=== PATIENT | female | born 1990 | race Caucasian/White ===

== ENCOUNTER 2018-01-29 06:35 | Inpatient (IN) | payer OTHER ==
[2018-01-29 07:49] LABS: BASO % 0.3 % (0-2.0); EOS % 0.5 % (0-4.5); HEMATOCRIT 32.5 % (32.4-45.2); HEMOGLOBIN 10.7 GM/dL (10.7-15.3); LYMPH % 17.7 % (8-40); MCH 25.5 pg (25.7-33.7); MCHC 32.8 g/dl (32.0-36.0); MEAN CELL VOLUME 77.6 fl (80-96); MEAN PLT VOLUME 9.3 fl (7.5-11.1); NEUT % 76.5 % (42.8-82.8); PLATELET COUNT 175 K/MM3 (134-434); RBC 4.18 M/mm3 (3.60-5.2); RDW 15.5 % (11.6-15.6); WHITE BLOOD COUNT 12.4 K/mm3 (4.0-10.0)
[2018-01-29] MEDS ORDERED: BUTORPHANOL TARTRATE 1 MG/ML VIAL ONE ×2 (08:05)
[2018-01-29] MEDS ORDERED: PROMETHAZINE HCL 25 MG/1 ML VIAL ONE (08:05)
[2018-01-29 08:11] LABS: ANION GAP 9 (8-16); BLOOD UREA NITROGEN 6 mg/dL (7-18); CHLORIDE 105 mmol/L (98-107); CO2 22 mmol/L (21-32); CREATININE 0.6 mg/dL (0.55-1.02); GLUCOSE,RANDOM 92 mg/dL (74-106); POTASSIUM 3.7 mmol/L (3.5-5.1); SODIUM 136 mmol/L (136-145)
[2018-01-29 08:15] LABS: INR 1.01 (0.82-1.09); PROTHROMBIN TIME (PATIENT) 11.4 SEC (9.7-13.0)
[2018-01-29 08:29] VITALS: BMI 38.4
--- NOTE | 2018-01-29 09:21 | HP ---
Past Medical History - Admission Chief Complaint: Labor pain History of Present Illness: 27 yo , @ 39 weeks gestation, EDC 02/03/18, admitted for labor pain. Upon admission she was 4cm dilated. History Source: Patient Limitations to Obtaining History: No Limitations - Past Medical History ...: 1 ...Para: 0 ...Term: 0 ...: 0 ...Spon : 0 ...Induced : 0 ...Multiple Gestation: 0 ...LMP: 04/29/17 ... Weeks Gestation by Dates: 39.2 ...EDC by Dates: 02/03/18 ...EDC by Sono: 02/03/18 - Past Surgical History Past Surgical History: Yes: None Hx Myomectomy: No Hx Transabdominal Cerclage: No - Smoking History Smoking history: Former smoker Have you smoked in the past 12 months: No Aproximately how many cigarettes per day: 10 - Alcohol/Substance Use Hx Alcohol Use: No History of Substance Use: reports: None - Social History History of Recent Travel: No Home Medications - Allergies Allergies/Adverse Reactions: Allergies Allergy/AdvReac Type Severity Reaction Status Date / Time No Known Allergies Allergy Verified 01/29/18 07:25 - Home Medications Home Medications: Ambulatory Orders Vit No.130/Iron/Folic [ Vitamins] 1 each PO DAILY 01/29/18 Family Disease History - Family Disease History Family History: Unremarkable Review of Systems - Review of Systems Constitutional: reports: No Symptoms Eyes: reports: No Symptoms HENT: reports: No Symptoms Neck: reports: No Symptoms Cardiovascular: reports: No Symptoms Respiratory: reports: No Symptoms Gastrointestinal: reports: No Symptoms Genitourinary: reports: Pain Breasts: reports: No Symptoms Reported Musculoskeletal: reports: No Symptoms Integumentary: reports: No Symptoms Neurological: reports: No Symptoms Endocrine: reports: No Symptoms Hematology/Lymphatic: reports: No Symptoms Psychiatric: reports: No Symptoms Pain Intensity: 7 Physical Exam - Maternity Vital Signs: Vital Signs Temperature 97.9 F 01/29/18 08:15 Pulse Rate 62 01/29/18 09:00 Respiratory Rate 01/29/18 09:00 Blood Pressure 99/51 01/29/18 09:00 O2 Sat by Pulse Oximetry (%) Constitutional: Yes: Well Nourished Eyes: Yes: Conjunctiva Clear HENT: Yes: Atraumatic Neck: Yes: Supple Cardiovascular: Yes: Regular Rate and Rhythm Lungs: Clear to auscultation - Abdominal Exam/OB Number of Fetuses: Single Presentation: Vertex Contractions: Yes - Vaginal Exam/OB Dilatation (cm): 4 Presentation: Vertex/Position - Physical Exam ...Motor Strength: WNL Psychiatric: Yes: Alert, Oriented - Labs Lab Results: CBC, BMP 01/29/18 07:35 01/29/18 07:35 Problem List - Problems (1) Pain during labor Code(s): O99.89 - OTH DISEASES AND CONDITIONS COMPL PREG/CHLDBRTH; R52 - PAIN, UNSPECIFIED Assessment/Plan Active labor Admit to L&D Analgesia as needed Anticipate
[2018-01-29] MEDS ORDERED: PROMETHAZINE HCL 25 MG/1 ML VIAL IVPB ONE (09:30)
[2018-01-29] MEDS ORDERED: BUTORPHANOL TARTRATE 1 MG/ML VIAL IVPUSH ONE (09:30)
[2018-01-29] MEDS ORDERED: OXYTOCIN 30 UNITS in 0.9% NS 30 UNIT/500 ML INFUS.BAG IVPB SCH (09:30)
[2018-01-29] MEDS ORDERED: OXYTOCIN 30 UNITS in 0.9% NS 30 UNIT/500 ML INFUS.BAG IVPB ONE (09:31)
[2018-01-29] MEDS ORDERED: DEXTROSE 5%-LACTATED RINGERS 1,000 ML IV SCH (09:45)
[2018-01-29] MEDS ORDERED: LIDO 2%/EPI 1:200000 PRESRVFRE (20 ML SDVIAL) ONE (10:59)
[2018-01-29] MEDS ORDERED: BUPIVACAINE HCL/PF 0.25% (2.5MG/ML) 10 ML VIAL ONE (10:59)
[2018-01-29] MEDS ORDERED: NALOXONE HCL 0.4 MG/ML VIAL IVPUSH PRN (11:20)
[2018-01-29] MEDS ORDERED: FENTANYL/BUPIVACAINE/NS/PF - PCEA - 50 ML DISP.SYRIN EP SCH (11:30)
[2018-01-29] MEDS ORDERED: LIDOCAINE HCL 1% PRESERVATIVE FREE - 30ML VIAL ONE (11:57)
[2018-01-29] MEDS ORDERED: OXYTOCIN 20 UNITS in 0.9% NS 20 UNIT/1,000 ML INFUS.BAG IV ONE ×2 (11:58→15:31)
[2018-01-29] MEDS ORDERED: IBUPROFEN 600 MG TABLET (FP) PO PRN (13:16)
[2018-01-29] MEDS ORDERED: ACETAMINOPHEN 325 MG TABLET (FP) PO PRN (13:16)
[2018-01-29] MEDS ORDERED: BENZOCAINE 28 GM HEMORRHOIDAL OINTMENT TP PRN (13:16)
[2018-01-29] MEDS ORDERED: BENZOCAINE 20% 57 GM BOTTLE TP PRN (13:16)
[2018-01-29] MEDS ORDERED: WITCH HAZEL 50% (TUCKS) 40 PAD/JAR PAD TP PRN (13:16)
[2018-01-29] MEDS ORDERED: BISACODYL 10 MG SUPP.RECT RC PRN (13:16)
[2018-01-29] MEDS ORDERED: METHYLERGONOVINE MALEATE 0.2 MG/1 ML AMP IM PRN (13:16)
[2018-01-29] MEDS ORDERED: FENTANYL/BUPIVACAINE/NS/PF - PCEA - 50 ML DISP.SYRIN EP ONE (14:20)
--- NOTE | 2018-01-29 15:41 | PN ---
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 Nose / Oropharynx suctioned @ perineum. Cord clamped and cut. Placenta expelled spontaneously intact. Laceration repaired with 2.0 Biosyn and 2.0 Chromic.
[2018-01-29] MEDS ORDERED: OXYTOCIN 20 UNITS in 0.9% NS 20 UNIT/1,000 ML INFUS.BAG IV SCH (16:00)
[2018-01-29] MEDS: FERROUS SO4 325 MG TABLET (FP) PO SCH (18:43)
[2018-01-30 07:33] LABS: BASO % 0.3 % (0-2.0); EOS % 1.3 % (0-4.5); HEMATOCRIT 30.4 % (32.4-45.2); LYMPH % 24.5 % (8-40); MCH 25.5 pg (25.7-33.7); MCHC 32.8 g/dl (32.0-36.0); MEAN CELL VOLUME 77.7 fl (80-96); MEAN PLT VOLUME 9.8 fl (7.5-11.1); MONO % 6.6 % (3.8-10.2); NEUT % 67.3 % (42.8-82.8); PLATELET COUNT 173 K/MM3 (134-434); RBC 3.91 M/mm3 (3.60-5.2); RDW 15.3 % (11.6-15.6); WHITE BLOOD COUNT 13.9 K/mm3 (4.0-10.0)
[2018-01-30] MEDS: FERROUS SO4 325 MG TABLET (FP) PO SCH ×3 (08:00→17:06)
[2018-01-30] MEDS: PRENATAL VITAMINS W/ FOLIC ACID TABLET (FP) PO SCH (09:20)
--- NOTE | 2018-01-30 10:43 | PN ---
Post Progress Note - Subjective Subjective: 27 yo Para 1 status post vaginal delivery, seen and evaluated. Doing well Post Day: 1 Type of Delivery: Vital Signs: Vital Signs Temperature 99.0 F 01/30/18 08:25 Pulse Rate 84 01/30/18 08:25 Respiratory Rate 18 01/30/18 08:25 Blood Pressure 123/74 01/30/18 08:25 O2 Sat by Pulse Oximetry (%) 100 01/29/18 15:53 Breast Exam: Yes: Soft Uterus: Yes: Fundus Firm Abdomen/GI: Yes: Abdomen soft, Tolerating PO Lochia: Yes: Rubra Lochia, amount: Moderate Extremities: Yes: Calves non-tender Perineum: Yes: Laceration (Healing) Activity: Ambulating - Labs Labs: CBC WBC 13.9 K/mm3 (4.0-10.0) H 01/30/18 06:20 RBC 3.91 M/mm3 (3.60-5.2) 01/30/18 06:20 Hgb 10.0 GM/dL (10.7-15.3) L 01/30/18 06:20 Hct 30.4 % (32.4-45.2) L 01/30/18 06:20 MCV 77.7 fl (80-96) L 01/30/18 06:20 MCH 25.5 pg (25.7-33.7) L 01/30/18 06:20 MCHC 32.8 g/dl (32.0-36.0) 01/30/18 06:20 RDW 15.3 % (11.6-15.6) 01/30/18 06:20 Plt Count 173 K/MM3 (134-434) 01/30/18 06:20 MPV 9.8 fl (7.5-11.1) 01/30/18 06:20 Neutrophils % 67.3 % (42.8-82.8) 01/30/18 06:20 Lymphocytes % 24.5 % (8-40) D 01/30/18 06:20 Monocytes % 6.6 % (3.8-10.2) 01/30/18 06:20 Eosinophils % 1.3 % (0-4.5) D 01/30/18 06:20 Basophils % 0.3 % (0-2.0) 01/30/18 06:20 Nucleated RBC % 0 % (0-0) 01/30/18 06:20 Problem List - Problems (1) Pain during labor Code(s): O99.89 - OTH DISEASES AND CONDITIONS COMPL PREG/CHLDBRTH; R52 - PAIN, UNSPECIFIED (2) Status post normal vaginal delivery Code(s): VPK0754 - Assessment/Plan Status post vaginal delivery Stable Continue routine care
[2018-01-30] MEDS ORDERED: SENNOSIDES/DOCUSATE COMBO (SENNA PLUS) TABLET (UD) PO PRN (22:00)
[2018-01-31] MEDS: FERROUS SO4 325 MG TABLET (FP) PO SCH ×2 (09:00→11:59)
[2018-01-31] MEDS: PRENATAL VITAMINS W/ FOLIC ACID TABLET (FP) PO SCH (09:53)
[2018-01-31 11:12] VITALS: BP 110/62; PULSE 88; TEMP 98.5
--- NOTE | 2018-01-31 12:56 | DS ---
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 Vital Signs: Vital Signs Temperature 98.5 F 01/31/18 10:00 Pulse Rate 88 01/31/18 10:00 Respiratory Rate 20 01/31/18 10:00 Blood Pressure 110/62 01/31/18 10:00 O2 Sat by Pulse Oximetry (%) 100 01/29/18 15:53 Constitutional: Yes: Well Nourished Eyes: Yes: Conjunctiva Clear HENT: Yes: Atraumatic Neck: Yes: Supple Cardiovascular: Yes: Regular Rate and Rhythm Respiratory: Yes: Regular Gastrointestinal: Yes: Normal Bowel Sounds External Genitalia: Yes: Normal Vaginal Exam: Yes: Normal Cervix: Yes: Normal Uterus: Yes: Firm ....Post : Yes: Uterus firm, Moderate lochia serosa Breast(s): Yes: WNL Musculoskeletal: Yes: WNL Neurological: Yes: Alert, Oriented ...Motor Strength: WNL Psychiatric: Yes: Alert, Oriented Labs: CBC, BMP 01/30/18 06:20 01/29/18 07:35 Delivery - Delivery Vaginal Delivery: Spontaneous Type of Anesthesia: Epidural Episiotomy/Laceration: 1st degree EBL (cc): 300 Delivery, Single - Stages of Labor Date 1st Stage Initiatied: 01/29/18 Time 1st Stage Initiated: 05:30 Date 2nd Stage Initiated: 01/29/18 Time 2nd Stage Initiated: 12:20 Date of Delivery: 01/29/18 Time of Delivery: 12:50 Time Placenta Delivered: 12:55 - Condition of 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 Present: No Gender: Male Weight: 7 lb 14 oz Position: Left, OA Total Hours ROM (Hrs/Mins): 2hrs/45mins - 1 Minute Total Score: 9 5 Minutes Total Score: 9 - Feeding Plan Initial Plan: Elected not to breastfeed exclusively throughout hospitalization Discharge Summary Reason For Visit: LABOR ADMIT Current Active Problems Pain during labor (Acute) Status post normal vaginal delivery (Acute) Procedures: Principal: Normal spontaneous vaginal delivery Hospital Course: Routine care Condition: Good - Instructions Diet, Activity, Other Instructions: Regular diet No douching, no sexual intercourse x 6 weeks F/U in clinic in 6 weeks Disposition: HOME - Home Medications Comprehensive Discharge Medication List: Ambulatory Orders Vit No.130/Iron/Folic [ Vitamins] 1 each PO DAILY 01/29/18
== END 2018-01-31 15:20 | disposition home or self-care (01) | DRG 775 ==
LOC: JDEL 06:35 → JLDR 07:15 → J3W 16:00
PROVIDERS: ADMIT Obstetrics & Gynecology; ATTEND Obstetrics & Gynecology
PROC: 10E0XZZ Delivery of Products of Conception, External Approach (ICD-10-PCS; principal; 2018-01-29)
PROC: 0W8NXZZ Division of Female Perineum, External Approach (ICD-10-PCS; 2018-01-29)
PROC: 0HQ9XZZ Repair Perineum Skin, External Approach (ICD-10-PCS; 2018-01-29)
DX: O70.0 First degree perineal laceration during delivery (principal); Z3A.39 39 weeks gestation of pregnancy; Z37.0 Single live birth
CPT/HCPCS: 36415; 59025; 59409; 80048; 85025; 85610; 85730; 86593; 86850; 86900; 86901

== ENCOUNTER 2018-09-18 10:21 | Emergency (ER) | payer OTHER ==
[2018-09-18 10:31] VITALS: BP 122/89; PULSE 82; TEMP 99; BMI 37.3
--- NOTE | 2018-09-18 11:27 | PDOC ---
History of Present Illness - General Chief Complaint: Vaginal Bleeding Stated Complaint: 12 WEEKS VAGINAL BLEEDING Time Seen by Provider: 09/18/18 11:09 History Source: Patient Exam Limitations: No Limitations - History of Present Illness Initial Comments: 09/18/18 11:22 28 yo F currently 12 weeks by LMP 06/22/18 here with c/0 vaginal bleeding. started 4 days ago. described as light spotting. using liner. was feeling lightheade few days ago. no abd pain no cramping. her ob is Past History - Past Medical History Allergies/Adverse Reactions: Allergies Allergy/AdvReac Type Severity Reaction Status Date / Time No Known Allergies Allergy Verified 09/18/18 10:28 Home Medications: Ambulatory Orders Vit No.130/Iron/Folic [ Vitamins] 1 each PO DAILY 01/29/18 Asthma: No Cancer: No Cardiac Disorders: No COPD: No Diabetes: No HTN: No Seizures: No Thyroid Disease: No - Immunization History Immunization Up to Date: Yes - Suicide/Smoking/Psychosocial Hx Smoking Status: Yes Smoking History: Never smoked Have you smoked in the past 12 months: No Number of Cigarettes Smoked Daily: 10 Hx Alcohol Use: No Drug/Substance Use Hx: No Hx Substance Use Treatment: No Review of Systems - Review of Systems Constitutional: No: Chills, Diaphoresis, Fever HEENTM: No: Eye Pain, Blurred Vision Respiratory: No: Cough, Orthopnea Cardiac (ROS): No: Chest Pain, Edema ABD/GI: No: Abdominal Distended : Yes: Other (vaginal bleeding.). No: Burning, Dysuria Hematologic/Lymphatic: No: Anemia, Blood Clots All Other Systems: Reviewed and Negative *Physical Exam - Vital Signs Last Vital Signs Temp Pulse Resp BP Pulse Ox 99.0 F 82 18 122/89 100 09/18/18 10:28 09/18/18 10:28 09/18/18 10:28 09/18/18 10:28 09/18/18 10:28 - Physical Exam Comments: 09/18/18 11:27 awake alert lungs clear bilaterally heart rrr no mrg abd soft nt nd. ext wwp no edema. no calf tenderness. Moderate Sedation - Procedure Monitoring Vital Signs: Procedure Monitoring Vital Signs Temperature 99.0 F 09/18/18 10:28 Pulse Rate 82 09/18/18 10:28 Respiratory Rate 18 09/18/18 10:28 Blood Pressure 122/89 09/18/18 10:28 O2 Sat by Pulse Oximetry (%) 100 09/18/18 10:28 ED Treatment Course - LABORATORY CBC & Chemistry Diagram: 09/18/18 11:30 09/18/18 11:30 - RADIOLOGY Radiology Studies Ordered: Category Date Time Status TRANSVAGINAL US PREG [US] Stat Ultrasound 09/18/18 11:18 Ordered Medical Decision Making - Medical Decision Making 09/18/18 11:27 differential threatened AB, AB, incomlete ab, ectopic. 09/18/18 12:51 focused ED bedside us performed, indication bleeding. pt with abnormally appearing gestational sac. no definitive pole identified. likely blood in canal. gestational sac small for dates measuring 6 wks in size. pt is 12 weeks by LMP recommend TV us ... awaitin radiology to perform. nora incomplete or missed ab, or abnormal . 09/18/18 13:54 d/w dr walters, would do expectant managmenet. pt may go on to have miscarriage without intervention. will see pt in office in 2 - 3 days. pt has appointment . will dc home *DC/Admit/Observation/Transfer Diagnosis at time of Disposition: Vaginal bleeding during - Discharge Dispostion Disposition: HOME Condition at time of disposition: Good - Referrals Referrals: Macy Walters MD [Staff Physician] - - Patient Instructions Printed Discharge Instructions: DI for Vaginal Bleeding During , Threatened Additional Instructions: Please return to the emergency department with any new or worsening symptoms or concerns. Please follow up with your primary care or Administrative Office Clerk physician within 72 hours. your ultrasound shows an abnormal . you should follow up with DR Walters within 2 - 3 days. call [facility] to schedule. you can return for severe pain , feeling dizzy or any concerns. your blood type is O positive. - Post Discharge Activity
[2018-09-18 11:38] LABS: BASO % 0.9 % (0-2.0); EOS % 2.1 % (0-4.5); HEMATOCRIT 37.1 % (32.4-45.2); HEMOGLOBIN 12.1 GM/dL (10.7-15.3); LYMPH % 28.1 % (8-40); MCH 24.2 pg (25.7-33.7); MCHC 32.5 g/dl (32.0-36.0); MEAN CELL VOLUME 74.5 fl (80-96); MEAN PLT VOLUME 9.1 fl (7.5-11.1); MONO % 6.2 % (3.8-10.2); NEUT % 62.7 % (42.8-82.8); PLATELET COUNT 227 K/MM3 (134-434); RBC 4.99 M/mm3 (3.60-5.2); WHITE BLOOD COUNT 7.7 K/mm3 (4.0-10.0)
[2018-09-18 11:48] LABS: URINE APPEARANCE CLOUDY; URINE BILIRUBIN NEGATIVE (<2.0 mg/dL); URINE COLOR YELLOW; URINE GLUCOSE (UA) NEGATIVE (NEGATIVE); URINE KETONE NEGATIVE (NEGATIVE); URINE LEUK ESTERASE TRACE (NEGATIVE); URINE NITRITE NEGATIVE (NEGATIVE); URINE PROTEIN 1+ (NEGATIVE); URINE UROBILINOGEN NEGATIVE mg/dL (0.2-1.0)
[2018-09-18 11:57] LABS: EPI CELLS RARE /HPF (FEW); URINE MUCUS RARE
[2018-09-18 12:16] LABS: ALBUMIN 3.9 g/dl (3.4-5.0); ALK PHOS 78 U/L (45-117); ANION GAP 7 MMOL/L (8-16); BILIRUBIN,TOTAL 0.3 mg/dL (0.2-1); BLOOD UREA NITROGEN 8 mg/dL (7-18); CHLORIDE 103 mmol/L (98-107); CO2 26 mmol/L (21-32); CREATININE 0.6 mg/dL (0.55-1.3); GLUCOSE,RANDOM 90 mg/dL (74-106); POTASSIUM 3.8 mmol/L (3.5-5.1); SGOT/AST 26 U/L (15-37); SGPT/ALT 30 U/L (13-61); SODIUM 136 mmol/L (136-145); TOT PROT 7.7 g/dl (6.4-8.2)
== END 2018-09-18 15:03 | disposition home or self-care (01) ==
LOC: JER 10:21
PROC: BY49ZZZ Ultrasonography of First Trimester, Single Fetus (ICD-10-PCS; principal; 2018-09-18)
DX: O26.891 Other specified pregnancy related conditions, first trimester (principal); O20.8 Other hemorrhage in early pregnancy; Z3A.12 12 weeks gestation of pregnancy
CPT/HCPCS: 36415; 76817-TC; 80053; 81003; 81015; 84702; 85025; 86850; 86900; 86901; 87086; 99282-25

== ENCOUNTER 2019-08-15 16:33 | Emergency (ER) | payer OTHER ==
[2019-08-15 16:52] VITALS: BMI 35.9
--- NOTE | 2019-08-15 16:53 | PDOC ---
Rapid Medical Evaluation Chief Complaint: Vaginal Bleeding Time Seen by Provider: 08/15/19 16:49 Medical Evaluation: Allergies Allergy/AdvReac Type Severity Reaction Status Date / Time No Known Allergies Allergy Verified 08/15/19 16:49 Vital Signs Temp Pulse Resp BP Pulse Ox 97.9 F 78 16 116/71 100 08/15/19 16:49 12 16:49 12 16:49 08/15/19 16:49 08/15/19 16:49 08/15/19 16:52 I have performed a brief in-person evaluation of this patient. The patient presents with a chief complaint of:13 weeks preg (s/p confirmed IUP ) w/ vag bleed today. No abd pain, dysuria, n/v/f/c Pertinent physical exam findings:stable I have ordered the following:Known RH + on prior labs, beta/ua/US The patient will proceed to the ED for further evaluation. 08/15/19 16:54 08/15/19 19:19 Discharge Disposition - Diagnosis Vaginal bleeding during - Referrals - Patient Instructions - Post Discharge Activity
--- NOTE | 2019-08-15 17:15 | PDOC ---
History of Present Illness - General Chief Complaint: Vaginal Bleeding Stated Complaint: 13 WEEKS AND BLEEDING Time Seen by Provider: 08/15/19 16:49 History Source: Patient - History of Present Illness Initial Comments: Ms. Chaudhary is a 30 y/o at 13 weeks (confirmed via US last week) w/hx migraine headaches p/w one day of vaginal bleeding. She reports waking up today with a migraine and going back to sleep. Once she awoke she noted dark red vaginal bleeding without clots. She is unsure how much she bled as she did not have pads at home. She reports that the bleeding continued until she presented for evaluation. She denies any abdominal cramping, weakness, lightheadedness, vertigo, shortness of breath, or chest pain. She has an animal bounty hunter follow up appointment scheduled for tomorrow (08/16/2019). This past August she had a miscarriage at 12 weeks . Past History - Past Medical History Allergies/Adverse Reactions: Allergies Allergy/AdvReac Type Severity Reaction Status Date / Time No Known Allergies Allergy Verified 08/15/19 16:49 Home Medications: Ambulatory Orders Vit No.130/Iron/Folic [ Vitamins] 1 each PO DAILY 01/29/18 Asthma: No Cancer: No Cardiac Disorders: No COPD: No Diabetes: No HTN: No Seizures: No Thyroid Disease: No - Immunization History Immunization Up to Date: Yes - Psycho Social/Smoking Cessation Hx Smoking Status: Yes Smoking History: Never smoked Have you smoked in the past 12 months: No Number of Cigarettes Smoked Daily: 10 Information on smoking cessation initiated: No Hx Alcohol Use: No Drug/Substance Use Hx: No Hx Substance Use Treatment: No Review of Systems - Review of Systems Able to Perform ROS?: Yes Comments:: 08/15/19 19:47 ROS: GENERAL/CONSTITUTIONAL: No fever or chills. No weakness. HEAD, EYES, EARS, NOSE AND THROAT: No change in vision. No ear pain or discharge. No sore throat. CARDIOVASCULAR: No chest pain or shortness of breath RESPIRATORY: No cough, wheezing, or hemoptysis. GASTROINTESTINAL: No nausea, vomiting, diarrhea or constipation. GENITOURINARY: Vaginal bleeding. No dysuria, frequency, or change in urination. MUSCULOSKELETAL: No joint or muscle swelling or pain. No neck or back pain. SKIN: No rash NEUROLOGIC: Headache. No vertigo, loss of consciousness, or change in strength/ sensation. ENDOCRINE: No increased thirst. No abnormal weight change HEMATOLOGIC/LYMPHATIC: No anemia, easy bleeding, or history of blood clots. ALLERGIC/IMMUNOLOGIC: No hives or skin allergy. *Physical Exam - Vital Signs Last Vital Signs Temp Pulse Resp BP Pulse Ox 97.9 F 78 16 116/71 100 08/15/19 16:49 08/15/19 16:49 08/15/19 16:49 08/15/19 16:49 08/15/19 16:49 - Physical Exam 08/15/19 19:44 PE: GENERAL: Awake, alert, and fully oriented, in no acute distress HEAD: No signs of trauma, normocephalic, atraumatic EYES: PERRLA, EOMI, sclera anicteric, conjunctiva clear ENT: Auricles normal inspection, hearing grossly normal, nares patent, oropharynx clear without exudates. Moist mucosa NECK: Normal ROM, supple, no lymphadenopathy, JVD, or masses LUNGS: No distress, speaks full sentences, clear to auscultation bilaterally HEART: Regular rate and rhythm, normal S1 and S2, no murmurs, rubs or gallops, peripheral pulses normal and equal bilaterally. ABDOMEN: Soft, nontender, normoactive bowel sounds. No guarding, no rebound. No masses EXTREMITIES : Normal inspection, Normal range of motion, no edema. No clubbing or cyanosis NEUROLOGICAL: Cranial nerves II through XII grossly intact. Normal speech, normal gait, no focal sensorimotor deficits SKIN: Warm, Dry, normal turgor, no rashes or lesions noted Pelvic: Normal external genitalia. Scant blood in vaginal vault. No lesions or discharge noted. Cervical os closed, no cervical lesions noted. No adnexal tenderness. ED Treatment Course - LABORATORY CBC & Chemistry Diagram: 08/15/19 18:50 08/15/19 18:50 Medical Decision Making - Medical Decision Making 08/15/19 19:43 29F [id number] p/w one day of vaginal bleeding, dark red, no clots, hemodynamically stable. Differential includes threatened /inevitable /missed vs uncomplicated vaginal bleeding. Plan: CBC CMP Type and Screen Serum hcg level Pelvic exam Transabdominal US Dispo: Discharge pending labs, follow up with animal bounty hunter tomorrow --- Transabdominal ultrasound - Bedside: Normal movements noted cardiac activity noted - HR 173 No pooling blood in or around uterus Discharge - Discharge Information Problems reviewed: Yes Clinical Impression/Diagnosis: Vaginal bleeding during Condition: Stable Disposition: HOME - Admission No - Follow up/Referral - Patient Discharge Instructions Patient Printed Discharge Instructions: DI for Vaginal Bleeding During Additional Instructions: Follow up with your PRODUCTION PACKAGER tomorrow as scheduled[place] [phone] today; please report this to your PRODUCTION PACKAGER. Start using your Metronidazole Cream as prescribed. IMMEDIATELY RETURN TO THE EMERGENCY DEPARTMENT IF YOU EXPERIENCE ANY OF THE FOLLOWING: - HEAVY BLEEDING (SOAKING 1 PAD AN HOUR FOR TWO CONSECUTIVE HOURS) - ABDOMINAL PAIN - CHEST PAIN, SHORTNESS OF BREATH - ANYTHING THAT CONCERNS YOU - Post Discharge Activity Work/Back to School Note: Back to Work
[2019-08-15] MEDS ORDERED: ACETAMINOPHEN 325 MG TABLET (FP) PO ONE (17:35)
--- NOTE | 2019-08-15 18:17 | PDOC ---
Documentation entered by Waldo Tate SCRIBE, acting as scribe for Elisabeth Johnson DO. Elisabeth Johnson DO: This documentation has been prepared by the Bebeto wagner Nirvannie, SCRIBE, under my direction and personally reviewed by me in its entirety. I confirm that the documentation accurately reflects all work, treatment, procedures, and medical decision making performed by me. Attending Attestation - Resident Resident Name: ErwinsammieToni - ED Attending Attestation I have performed the following: I have examined & evaluated the patient, The case was reviewed & discussed with the resident, I agree w/resident's findings & plan, Exceptions are as noted - HPI HPI: 08/15/19 18:18 The patient is a 29 year old 13 weeks female (confirmed on ultrasound done last week) A1, with a significant past medical history of migraines, who presents to the emergency department with 1 day of vaginal bleeding. As per patient, she woke up this morning with a normal migraine and went back to sleep and upon waking up she noticed vaginal bleeding described as constant dark brown bleeding with associated mild dizziness. Patient is unable to quantify how much blood secondary to her not having any pads at home. She denies any large clots, abnormal discharge, dysuria, frequency, or urgency. She denies recent fevers or chills. She denies recent nausea, vomit, diarrhea or constipation. She denies recent chest pain or shortness of breath. Allergies: NKDA - Physicial Exam PE: 08/15/19 18:18 Constitutional: Awake, alert, oriented. No acute distress. Head: Normocephalic. Atraumatic Eyes: PERRL. EOMI. Conjunctivae are not pale. ENT: Mucous membranes are moist and intact. Posterior pharynx without exudates or erythema. Uvula midline. Neck: Supple. Full ROM. No lymphadenopathy. Cardiovascular: Regular rate. Regular rhythm. S1, S2 regular. Distal pulses are 2+ and symmetric. Pulmonary/Chest: No evidence of respiratory distress. Clear to auscultation bilaterally No wheezing, rales or rhonchi. Abdominal: Soft and non-distended. There is no tenderness. No rebound, guarding or rigidity. No organomegaly. No palpable masses. Good bowel sounds. Pelvic:+ Closed Os. Scant blood in the vault. External genitalia normal without lesions. Cervix is long and closed. No cervical motion tenderness. Uterus is nontender and normal in size. Adnexa are nontender and without masses. Back: No CVA tenderness. Musculoskeletal: No edema. No cyanosis. No clubbing. Full range of motion in all extremities. No calf tenderness. Radial/pedal pulses are intact and 2+ bilaterally Skin: Skin is warm and dry. No petechiae. No purpura. Neurological: Alert and oriented to person, place, and time. Cranial nerves II -XII are grossly intact. Normal speech. Strength is grossly symmetric. No sensory deficits. Psychiatric: Good eye contact. Normal interaction, affect and behavior. - Medical Decision Making 08/15/19 18:14 I, Dr. Elisabeth Johnson, DO, attest that this document has been prepared under my direction and personally reviewed by me in its entirety. I further attest, that it accurately reflects all work, treatment, procedures and medical decision -making performed by me. a/p: 29yo female at around 13 weeks gestation with vaginal bleeding today -had a migraine and then started to bleed -denies pelvic trauma -denies dysuria -was dx with BV last week by CASH MANAGEMENT CLERK but has not started treatment -no cramping -POCUS bedside shows and IUP at 12 weeks 4 days - FHR 173 -labs pending, has appt with yony gracia tomorrow 08/15/19 18:17 08/15/19 19:34 hgb stable 08/15/19 20:36 beta [id number] no uti pending type and screen and will be stable for dc to home to follow up with Yony Gracia tomorrow 08/15/19 20:46 pt o+ stable for dc to home
[2019-08-15] MEDS ORDERED: ACETAMINOPHEN 325 MG TABLET (FP) ONE (18:53)
[2019-08-15 19:10] LABS: BASO % 0.4 % (0-2.0); EOS % 1.2 % (0-4.5); HEMATOCRIT 38.4 % (32.4-45.2); HEMOGLOBIN 12.5 GM/dL (10.7-15.3); LYMPH % 27.2 % (8-40); MCH 25.9 pg (25.7-33.7); MCHC 32.6 g/dl (32.0-36.0); MEAN CELL VOLUME 79.4 fl (80-96); MEAN PLT VOLUME 9.9 fl (7.5-11.1); MONO % 4.1 % (3.8-10.2); NEUT % 67.1 % (42.8-82.8); PLATELET COUNT 209 K/MM3 (134-434); RBC 4.83 M/mm3 (3.60-5.2); RDW 19.3 % (11.6-15.6); WHITE BLOOD COUNT 7.4 K/mm3 (4.0-10.0)
--- NOTE | 2019-08-15 19:20 | PDOC ---
*Physical Exam - Vital Signs Last Vital Signs Temp Pulse Resp BP Pulse Ox 97.9 F 78 16 116/71 100 08/15/19 16:49 08/15/19 16:49 08/15/19 16:49 08/15/19 16:49 08/15/19 16:49 ED Treatment Course - LABORATORY CBC & Chemistry Diagram: 08/15/19 18:50 08/15/19 18:50 - Medications Given in the ED: ED Medications Discontinued Medications Generic Name Dose Route Start Last Admin Trade Name Ally PRN Reason Stop Dose Admin Acetaminophen 975 mg 08/15/19 17:35 08/15/19 18:52 Tylenol - PO 08/15/19 17:36 975 mg ONCE ONE Administration Medical Decision Making - Medical Decision Making 08/15/19 19:17 Sign out received from Dr. Padron: 29F A1 13W BY US 08/15/19 w/ VAGINAL BLEEDING TODAY. H/O PRIOR SPONTANEOUS DX OF BACTERIAL VAGINOSIS - NOT TAKING ABX 2/2 PT CONCERN RE: EXAM SIGNIFICANT FOR CLOSED OS; SMALL AMNT PELVIC BLOOD; + MOVEMENT AND 170 FHR LABS URINE SENT To do [] F/U LABS, URINE - LIKELY DISPO HOME W/ METRONIDAZOLE CREAM - F/U OB AM 08/15/19 20:30 Pt has metronidazole cream at home. labs reviewed UA neg f/u T&S 08/15/19 20:45 O+ dc home w/ ob f/u tomorrow Discharge - Discharge Information Problems reviewed: Yes Clinical Impression/Diagnosis: Vaginal bleeding during Condition: Stable Disposition: HOME - Follow up/Referral - Patient Discharge Instructions Patient Printed Discharge Instructions: DI for Vaginal Bleeding During Additional Instructions: Follow up with your STAKE SETTER tomorrow as scheduled. [place] [id number] today; please report this to your STAKE SETTER. Start using your Metronidazole Cream as prescribed. IMMEDIATELY RETURN TO THE EMERGENCY DEPARTMENT IF YOU EXPERIENCE ANY OF THE FOLLOWING: - HEAVY BLEEDING (SOAKING 1 PAD AN HOUR FOR TWO CONSECUTIVE HOURS) - ABDOMINAL PAIN - CHEST PAIN, SHORTNESS OF BREATH - ANYTHING THAT CONCERNS YOU - Post Discharge Activity Work/Back to School Note: Back to Work
[2019-08-15 19:48] LABS: EPI CELLS 4.7 /HPF (0-5/HPF); HYALINE CASTS 3 /lpf (0-8); PH,URINE 5.5 (5.0-8.0); URINE APPEARANCE CLOUDY; URINE BILIRUBIN NEGATIVE (NEGATIVE); URINE COLOR ORANGE; URINE GLUCOSE (UA) NEGATIVE (NEGATIVE); URINE KETONE NEGATIVE (NEGATIVE); URINE LEUK ESTERASE NEGATIVE (NEGATIVE); URINE NITRITE NEGATIVE (NEGATIVE); URINE PROTEIN 1+ (NEGATIVE); URINE RBC 657 /hpf (0-4); URINE UROBILINOGEN 0.2 mg/dL (0.2-1.0); URINE WBC 6 /hpf (0-5)
[2019-08-15 20:16] LABS: ALBUMIN 3.2 g/dl (3.4-5.0); BILIRUBIN,TOTAL 0.2 mg/dL (0.2-1); CALCIUM 8.8 mg/dL (8.5-10.1); CREATININE 0.6 mg/dL (0.55-1.3)
[2019-08-15 21:21] VITALS: BP 105/69; PULSE 75; TEMP 98
== END 2019-08-15 21:05 | disposition home or self-care (01) ==
LOC: JER 16:33
DX: O26.891 Other specified pregnancy related conditions, first trimester (principal); O20.8 Other hemorrhage in early pregnancy; Z3A.13 13 weeks gestation of pregnancy; Z87.42 Personal history of other diseases of the female genital tract; B96.89 Other specified bacterial agents as the cause of diseases classified elsewhere
CPT/HCPCS: 36415; 76815; 80053; 81003; 84702; 85025; 86850; 86900; 86901; 87086; 99283-25

== ENCOUNTER 2020-02-21 17:00 | Inpatient (IN) | payer OTHER ==
[2020-02-21] MEDS ORDERED: BUTORPHANOL TARTRATE 1 MG/ML VIAL IVPUSH ONE ×2 (17:57→21:04)
[2020-02-21] MEDS ORDERED: PROMETHAZINE HCL 25 MG/1 ML VIAL IVPUSH ONE (17:57)
[2020-02-21] MEDS ORDERED: DEXTROSE 5%-LACTATED RINGERS 1,000 ML IV SCH (18:00)
[2020-02-21] MEDS ORDERED: OXYTOCIN 30 UNITS in 0.9% NS 30 UNIT/500 ML INFUS.BAG IVPB SCH (18:00)
--- NOTE | 2020-02-21 18:04 | HP ---
Past Medical History - Admission Chief Complaint: preganacy 40.5 weeks, early labor History of Present Illness: 29 yo f 40.2 weeks in labor cx 3 cm 80 vx -2 mi, fhr cat 1, irregular contraction , GBS negative History Source: Patient Limitations to Obtaining History: No Limitations - Past Medical History ...: 2 ...Para: 1 ...EDC by Sono: 02/19/20 Heme/Onc: Yes: Anemia - Past Surgical History Past Surgical History: Yes: None Hx Myomectomy: No Hx Transabdominal Cerclage: No - Smoking History Smoking history: Never smoked Have you smoked in the past 12 months: No Aproximately how many cigarettes per day: 10 - Alcohol/Substance Use Hx Alcohol Use: No History of Substance Use: reports: None - Social History History of Recent Travel: No Home Medications - Allergies Allergies/Adverse Reactions: Allergies Allergy/AdvReac Type Severity Reaction Status Date / Time No Known Allergies Allergy Verified 02/21/20 18:23 - Home Medications Home Medications: Ambulatory Orders Vit No.130/Iron/Folic [ Vitamins] 1 each PO DAILY 01/29/18 Review of Systems - Review of Systems Constitutional: reports: No Symptoms Eyes: reports: No Symptoms HENT: reports: No Symptoms Neck: reports: No Symptoms Cardiovascular: reports: No Symptoms Respiratory: reports: No Symptoms Gastrointestinal: reports: No Symptoms Genitourinary: reports: No Symptoms Breasts: reports: No Symptoms Reported Musculoskeletal: reports: No Symptoms Integumentary: reports: No Symptoms Neurological: reports: No Symptoms Endocrine: reports: No Symptoms Hematology/Lymphatic: reports: No Symptoms Psychiatric: reports: No Symptoms Physical Exam - Maternity Constitutional: Yes: Well Nourished, No Distress, Calm Eyes: Yes: WNL, Conjunctiva Clear, EOM Intact HENT: Yes: WNL, Atraumatic, Normocephalic Neck: Yes: WNL, Supple, Trachea Midline Cardiovascular: Yes: WNL, Regular Rate and Rhythm Breast(s): Yes: WNL - Abdominal Exam/OB Fundal Height: 40 Number of Fetuses: Single Presentation: Vertex Contractions: Yes Regularity: Irregular Intensity: Mild Monitor Mode: External Heart Rate Location: [facility] Category: I Accelerations: Non-Uniform Decelerations: None - Vaginal Exam/OB Vaginal Bleeding: No Speculum Exam: Yes Dilatation (cm): 4cm Effacement (%): 70 Amniotic Membrane Status: Bulging Presentation: Vertex/Position Station: -3 - Physical Exam Edema: LLE: Trace, RLE: Trace ...Motor Strength: WNL Psychiatric: Yes: WNL Hemorrhage Risk Assessment - Risk Factors Medium Risk Factors: Yes: None High Risk Factors: Yes: None Risk Score: 1 Risk Level: Medium Risk Problem List - Problems (1) Post term over 40 weeks Code(s): O48.0 - POST-TERM (2) Labor established Code(s): [id number] - Assessment/Plan admit , for delivery pitocin risks discussed
[2020-02-21 18:16] VITALS: BMI 39.9
[2020-02-21 18:58] LABS: BASO % 0.5 % (0-2.0); EOS % 1.1 % (0-4.5); HEMATOCRIT 32.6 % (32.4-45.2); HEMOGLOBIN 10.4 GM/dL (10.7-15.3); MCHC 31.7 g/dl (32.0-36.0); MEAN CELL VOLUME 75.7 fl (80-96); MONO % 6.6 % (3.8-10.2); NEUT % 66.8 % (42.8-82.8); PLATELET COUNT 199 K/MM3 (134-434); RBC 4.31 M/mm3 (3.60-5.2); WHITE BLOOD COUNT 9.2 K/mm3 (4.0-10.0)
[2020-02-21 19:04] LABS: INR 0.99 (0.83-1.09); PROTHROMBIN TIME (PATIENT) 11.7 SEC (9.7-13.0)
[2020-02-21 19:07] LABS: ACTIVATED PTT 24.4 SECONDS (25.2-36.5)
[2020-02-21 19:32] LABS: BLOOD UREA NITROGEN 7.8 mg/dL (7-18); CALCIUM 8.3 mg/dL (8.5-10.1); CREATININE 0.6 mg/dL (0.55-1.3); POTASSIUM 3.8 mmol/L (3.5-5.1)
[2020-02-21] MEDS ORDERED: PCA PUMP NR ONE (20:42)
[2020-02-21] MEDS ORDERED: FENTANYL/BUPIVACAINE/NS/PF - PCEA - 50 ML DISP.SYRIN EP ONE (20:43)
[2020-02-21] MEDS ORDERED: BUTORPHANOL TARTRATE 1 MG/ML VIAL ONE (20:54)
[2020-02-21] MEDS ORDERED: PROMETHAZINE HCL 25 MG/1 ML VIAL ONE (20:54)
--- NOTE | 2020-02-21 20:58 | PN ---
Progress Note (short form) - Note Progress Note: cx 5 cm 80 vx -2 srom , clear fhr cat1 Problem List - Problems (1) Post term over 40 weeks Code(s): O48.0 - POST-TERM (2) Labor established Code(s): IRC6404 -
[2020-02-21] MEDS ORDERED: BUPIVACAINE HCL/PF 0.25% (2.5MG/ML) 10 ML VIAL ONE ×2 (21:46→21:50)
[2020-02-21] MEDS: FENTANYL/BUPIVACAINE/NS/PF - PCEA - 50 ML DISP.SYRIN EP SCH (22:55)
[2020-02-21] MEDS ORDERED: ELECTROLYTE-148 SOLN 1,000 ML IV SCH (23:00)
[2020-02-21] MEDS ORDERED: OXYTOCIN 20 UNITS in 0.9% NS 20 UNIT/1,000 ML INFUS.BAG IV ONE (23:16)
[2020-02-21] MEDS ORDERED: OXYTOCIN 20 UNITS in 0.9% NS 20 UNIT/1,000 ML INFUS.BAG IV SCH (23:45)
[2020-02-21] MEDS ORDERED: BISACODYL 10 MG SUPP.RECT RC PRN (23:49)
[2020-02-21] MEDS ORDERED: BENZOCAINE 28 GM HEMORRHOIDAL OINTMENT TP PRN (23:49)
[2020-02-21] MEDS ORDERED: WITCH HAZEL 50% (TUCKS) 40 PAD/JAR PAD TP PRN (23:49)
[2020-02-21] MEDS ORDERED: METHYLERGONOVINE MALEATE 0.2 MG/1 ML AMP IM PRN (23:49)
[2020-02-21] MEDS ORDERED: BENZOCAINE 20% 57 GM BOTTLE TP PRN (23:49)
--- NOTE | 2020-02-21 23:53 | PN ---
Delivery - Delivery Vaginal Delivery: Spontaneous Type of Anesthesia: Epidural Episiotomy/Laceration: None (cx full head delivered , nasopharynx suctioned , ant and post. shoulder with no difficulty , live baby boy , 9/9 baby bonded with mom, no laceration . placenta complete , ebl 300 cc, no complication blood gases obtained) Delivery, Single - [place] Feeding Plan Initial Plan: Exclusive throughout hospitalization
[2020-02-22] MEDS ORDERED: NALOXONE HCL 0.4 MG/ML VIAL IVPUSH PRN (00:13)
[2020-02-22 00:19] LABS: CORD BASE EXCESS -4.6 mmol/L (0-2); CORD HCO3 21.6 mmHg (20-29); CORD PCO2 43.8 mmHg (30-78); CORD pH 7.31 (7.14-7.44)
[2020-02-22 00:21] LABS: CORD BASE EXCESS -4.5 mmol/L (0-2); CORD HCO3 24.2 mmHg (20-29); CORD PCO2 59.4 mmHg (30-78); CORD pH 7.228 (7.14-7.44)
[2020-02-22] MEDS ORDERED: OXYTOCIN 20 UNITS in 0.9% NS 20 UNIT/1,000 ML INFUS.BAG IV ONE (03:15)
[2020-02-22] MEDS: ACETAMINOPHEN 325 MG TABLET (FP) PO PRN (03:48)
[2020-02-22] MEDS: IBUPROFEN 600 MG TABLET (FP) PO PRN (03:49)
--- NOTE | 2020-02-22 06:26 | PN ---
Progress Note (short form) - Note Progress Note: ppd 1,s/p , no c/o no excess vaginal bleeding CBC, BMP 02/21/20 18:10 02/21/20 18:10 Last Vital Signs Temp Pulse Resp BP Pulse Ox 98.6 F 55 L 18 125/73 100 02/22/20 03:48 02/22/20 03:48 02/22/20 03:48 02/22/20 03:48 02/22/20 00:30 abdomen soft, no distension, no cva uterus firm, non tender lochia mild no calf tenderness plan ambulate , cbc plan for d/c home in am Problem List - Problems (1) Post term over 40 weeks Code(s): O48.0 - POST-TERM (2) Labor established Code(s): [id number] -
[2020-02-22 09:14] LABS: BASO % 0.3 % (0-2.0); EOS % 0.7 % (0-4.5); HEMOGLOBIN 9.2 GM/dL (10.7-15.3); LYMPH % 21.6 % (8-40); MCH 23.7 pg (25.7-33.7); MCHC 31.7 g/dl (32.0-36.0); MEAN CELL VOLUME 74.7 fl (80-96); MEAN PLT VOLUME 9.9 fl (7.5-11.1); MONO % 7.3 % (3.8-10.2); NEUT % 70.1 % (42.8-82.8); PLATELET COUNT 168 K/MM3 (134-434); RBC 3.88 M/mm3 (3.60-5.2); RDW 16.4 % (11.6-15.6); WHITE BLOOD COUNT 10.5 K/mm3 (4.0-10.0)
[2020-02-22] MEDS: PRENATAL VITAMINS W/ FOLIC ACID TABLET (FP) PO SCH (09:43)
[2020-02-22] MEDS: FERROUS SO4 325 MG TABLET (FP) PO SCH ×2 (09:43→17:37)
[2020-02-22] MEDS ORDERED: SENNOSIDES/DOCUSATE COMBO (SENNA PLUS) TABLET (UD) PO PRN (22:00)
[2020-02-23] MEDS: FENTANYL/BUPIVACAINE/NS/PF - PCEA - 50 ML DISP.SYRIN EP SCH (07:04)
[2020-02-23] MEDS: IBUPROFEN 600 MG TABLET (FP) PO PRN (09:33)
[2020-02-23] MEDS: ACETAMINOPHEN 325 MG TABLET (FP) PO PRN (09:34)
[2020-02-23] MEDS: FERROUS SO4 325 MG TABLET (FP) PO SCH (09:34)
[2020-02-23] MEDS: PRENATAL VITAMINS W/ FOLIC ACID TABLET (FP) PO SCH (09:34)
--- NOTE | 2020-02-23 11:11 | DS ---
Physical Examination Vital Signs: Vital Signs Temperature 97.5 F L 02/22/20 22:00 Pulse Rate 80 02/22/20 22:00 Respiratory Rate 18 02/22/20 22:00 Blood Pressure 132/72 02/22/20 22:00 O2 Sat by Pulse Oximetry (%) 100 02/22/20 00:30 Findings/Remarks: Ambulating, tolerating PO, lochia decreased, pp precautions discussed. Constitutional: Yes: No Distress HENT: Yes: Atraumatic Neck: Yes: Supple Cardiovascular: Yes: Regular Rate and Rhythm Respiratory: Yes: Regular Gastrointestinal: Yes: Normal Bowel Sounds ...Rectal Exam: Yes: Other Renal/: Yes: Other Breast(s): Yes: Other Musculoskeletal: Yes: WNL Extremities: Yes: WNL Edema: Yes Edema: LLE: Trace, RLE: Trace Integumentary: Yes: WNL Neurological: Yes: Alert, Oriented ...Motor Strength: WNL Psychiatric: Yes: Alert, Oriented Labs: CBC, BMP 02/22/20 08:40 02/21/20 18:10 Discharge Summary Problems reviewed: Yes Reason For Visit: INDUCTION OF LABOR Current Active Problems Labor established (Acute) Post term over 40 weeks (Acute) Procedures: Principal: Hospital Course: Uncomplicated vaginal delivery and recovery Plan of Treatment: follow up in 3-4 weeks with MD Condition: Stable - Instructions Diet, Activity, Other Instructions: Return to regular diet and activity as tolerated. Follow up in 4 weeks for early visit. Call MD with any questions or concerns. Referrals: Yeyo Cesar MD [Staff Physician] - Cosme Mejia MD [Staff Physician] - Disposition: HOME - Home Medications Comprehensive Discharge Medication List: Ambulatory Orders Vit No.130/Iron/Folic [ Vitamins] 1 each PO DAILY 01/29/18 Acetaminophen [Tylenol] 325 mg PO Q6H PRN #30 capsule MDD 5 02/23/20 Ibuprofen 600 mg PO Q6H PRN #30 tablet 02/23/20 Miscellaneous Medical Supply [Electronic Breast Pumo] 1 each NR ASDIR #1 unit 02/23/20
[2020-02-23 11:14] VITALS: BP 102/65; PULSE 75; TEMP 98
== END 2020-02-23 13:10 | disposition home or self-care (01) | DRG 807 ==
LOC: JLDR 17:00 → J3W 02-22 03:30
PROVIDERS: ADMIT Obstetrics & Gynecology; ATTEND Obstetrics & Gynecology
PROC: 10E0XZZ Delivery of Products of Conception, External Approach (ICD-10-PCS; principal; 2020-02-21)
DX: O48.0 Post-term pregnancy (principal); Z37.0 Single live birth; Z3A.40 40 weeks gestation of pregnancy
CPT/HCPCS: 36415; 36600; 59409; 80048; 82803; 85025; 85610; 85730; 86780; 86850; 86900; 86901; U0003

== ENCOUNTER 2022-02-27 16:51 | Emergency (ER) | payer OTHER ==
[2022-02-27 17:28] VITALS: BP 121/78; PULSE 63; TEMP 98.5; BMI 38.0
[2022-02-27 18:47] LABS: BASO % 0.8 % (0-2.0); EOS % 2.1 % (0-4.5); HEMATOCRIT 37.6 % (32.4-45.2); HEMOGLOBIN 12.5 GM/dL (10.7-15.3); LYMPH % 29.2 % (8-40); MCHC 33.4 g/dl (32.0-36.0); MEAN CELL VOLUME 80.8 fl (80-96); MEAN PLT VOLUME 9.7 fl (7.5-11.1); MONO % 8.2 % (3.8-10.2); NEUT % 59.7 % (42.8-82.8); PLATELET COUNT 212 10^3/uL (134-434); RBC 4.65 M/mm3 (3.60-5.2); RDW 16.3 % (11.6-15.6); WHITE BLOOD COUNT 7.8 K/mm3 (4.0-10.0)
[2022-02-27 18:55] LABS: HCG,QUALITATIVE URINE Positive
[2022-02-27 18:58] LABS: EPI CELLS 2 /uL (0-25.1); HYALINE CASTS 0 /uL (0-3.1); PH,URINE 6.5 (5.0-8.0); URINE APPEARANCE CLEAR; URINE BACTERIA 24 /uL (0-1359); URINE BILIRUBIN NEGATIVE (NEGATIVE); URINE COLOR YELLOW; URINE GLUCOSE (UA) NEGATIVE (NEGATIVE); URINE KETONE NEGATIVE (NEGATIVE); URINE LEUK ESTERASE NEGATIVE (NEGATIVE); URINE NITRITE NEGATIVE (NEGATIVE); URINE PROTEIN NEGATIVE (NEGATIVE); URINE RBC 15 /uL (0-23.9); URINE UROBILINOGEN 0.2 mg/dL (0.2-1.0); URINE WBC 1 /uL (0-25.8)
[2022-02-27 19:13] LABS: CALCIUM 8.9 mg/dL (8.5-10.1)
[2022-02-27 19:14] LABS: ALBUMIN 3.6 g/dl (3.4-5.0); BLOOD UREA NITROGEN 6.6 mg/dL (7-18)
[2022-02-27 19:17] LABS: CREATININE 0.6 mg/dL (0.55-1.3)
[2022-02-27 19:19] LABS: BILIRUBIN,TOTAL 0.4 mg/dL (0.2-1)
== END 2022-02-27 20:46 | disposition home or self-care (01) ==
LOC: JER 16:51
DX: O20.0 Threatened abortion (principal)
CPT/HCPCS: 36415; 76817-TC; 80053; 81003; 84702; 84703; 85025; 87086; 99284-25

== ENCOUNTER 2022-07-23 19:28 | Emergency (ER) | payer OTHER ==
[2022-07-23 20:16] VITALS: BMI 38.7
[2022-07-23] MEDS ORDERED: ACETAMINOPHEN 500 MG TABLET (FP) PO ONE (21:00)
[2022-07-23] MEDS ORDERED: ACETAMINOPHEN 325 MG TABLET (FP) ONE (21:14)
[2022-07-23 22:36] VITALS: TEMP 98.3
[2022-07-23 23:06] VITALS: BP 111/63; PULSE 87; RESP 18
== END 2022-07-23 23:53 | disposition home or self-care (01) ==
LOC: JER 19:28
DX: U07.1 COVID-19 (principal)
CPT/HCPCS: 0241U-QW; 99283-25

== ENCOUNTER 2022-10-18 16:10 | Inpatient (IN) | payer OTHER ==
[2022-10-18 17:16] VITALS: BMI 39.9
[2022-10-18] MEDS: ELECTROLYTE-148 SOLN 1,000 ML IV SCH (17:20)
[2022-10-18 18:30] LABS: BASO % 0.5 % (0-2.0); EOS % 1.6 % (0-4.5); HEMATOCRIT 30.9 % (32.4-45.2); LYMPH % 20.4 % (8-40); MCH 24.7 pg (25.7-33.7); MCHC 32.5 g/dl (32.0-36.0); MEAN CELL VOLUME 75.9 fl (80-96); MEAN PLT VOLUME 9.1 fl (7.5-11.1); MONO % 8.1 % (3.8-10.2); NEUT % 69.4 % (42.8-82.8); PLATELET COUNT 185 10^3/uL (134-434); RBC 4.07 M/mm3 (3.60-5.2); RDW 15.8 % (11.6-15.6)
[2022-10-18 18:34] LABS: INR 1.02 (0.83-1.09); PROTHROMBIN TIME (PATIENT) 11.8 SEC (9.7-13.0)
[2022-10-18 18:49] LABS: BLOOD UREA NITROGEN 7.2 mg/dL (7-18); CALCIUM 8.1 mg/dL (8.5-10.1)
[2022-10-18 18:53] LABS: CREATININE 0.5 mg/dL (0.55-1.3)
[2022-10-18] MEDS ORDERED: FENTANYL/BUPIVACAINE/NS/PF - PCEA - 50 ML DISP.SYRIN EP ONE (20:06)
[2022-10-18] MEDS ORDERED: NALOXONE HCL 0.4 MG/ML VIAL IVPUSH PRN (20:07)
[2022-10-18] MEDS ORDERED: FENTANYL CITRATE/PF 50 MCG/ML VIAL ONE (20:15)
[2022-10-18] MEDS ORDERED: FENTANYL/BUPIVACAINE/NS/PF - PCEA - 50 ML DISP.SYRIN EP SCH (20:15)
[2022-10-18] MEDS ORDERED: OXYTOCIN 30 UNITS in 0.9% NS 30 UNIT/500 ML INFUS.BAG IVPB ONE (23:59)
[2022-10-18] MEDS ORDERED: LIDOCAINE HCL 1% PRESERVATIVE FREE - 30ML VIAL ONE (23:59)
[2022-10-18] MEDS ORDERED: OXYTOCIN 20 UNITS in 0.9% NS 20 UNIT/1,000 ML INFUS.BAG IV ONE (23:59)
[2022-10-19] MEDS ORDERED: BISACODYL 10 MG SUPP.RECT RC PRN (00:13)
[2022-10-19] MEDS ORDERED: METHYLERGONOVINE MALEATE 0.2 MG/1 ML AMP IM PRN (00:13)
[2022-10-19] MEDS ORDERED: ACETAMINOPHEN 325 MG TABLET (FP) PO PRN (00:13)
[2022-10-19] MEDS ORDERED: WITCH HAZEL 50% (TUCKS) 40 PAD/JAR PAD TP PRN (00:13)
[2022-10-19] MEDS ORDERED: BENZOCAINE 28 GM HEMORRHOIDAL OINTMENT TP PRN (00:13)
[2022-10-19] MEDS ORDERED: BENZOCAINE 20% 57 GM BOTTLE TP PRN (00:13)
[2022-10-19] MEDS ORDERED: OXYTOCIN 20 UNITS in 0.9% NS 20 UNIT/1,000 ML INFUS.BAG IV SCH (00:15)
[2022-10-19] MEDS: IBUPROFEN 600 MG TABLET (FP) PO PRN (09:53)
[2022-10-19] MEDS: PRENATAL VITAMINS W/ FOLIC ACID TABLET (FP) PO SCH (09:53)
[2022-10-19 10:29] VITALS: RESP 18
[2022-10-19 14:18] LABS: POC NITRAZINE POS
[2022-10-19] MEDS ORDERED: FAMOTIDINE 20 MG TABLET PO STA (17:56)
[2022-10-19] MEDS: ELECTROLYTE-148 SOLN 1,000 ML IV SCH (19:27)
[2022-10-19] MEDS ORDERED: MAG HYDROX/AL HYDROX/SIMETH 30 ML UNIT-DOSE CUP PO PRN (21:02)
[2022-10-20 09:20] LABS: BASO % 0.5 % (0-2.0); EOS % 1.3 % (0-4.5); HEMATOCRIT 26.6 % (32.4-45.2); HEMOGLOBIN 8.7 GM/dL (10.7-15.3); LYMPH % 25.6 % (8-40); MCH 25.1 pg (25.7-33.7); MCHC 32.7 g/dl (32.0-36.0); MEAN CELL VOLUME 76.9 fl (80-96); MEAN PLT VOLUME 10.2 fl (7.5-11.1); MONO % 6.4 % (3.8-10.2); NEUT % 66.2 % (42.8-82.8); PLATELET COUNT 161 10^3/uL (134-434); RBC 3.47 M/mm3 (3.60-5.2); RDW 16.1 % (11.6-15.6); WHITE BLOOD COUNT 9.6 K/mm3 (4.0-10.0)
[2022-10-20] MEDS: IBUPROFEN 600 MG TABLET (FP) PO PRN (09:38)
[2022-10-20] MEDS: PRENATAL VITAMINS W/ FOLIC ACID TABLET (FP) PO SCH (09:38)
[2022-10-20 09:50] VITALS: BP 119/61; PULSE 66; TEMP 98
== END 2022-10-20 16:03 | disposition home or self-care (01) | DRG 807 ==
LOC: JLDR 16:10 → J3W 10-19 02:12
PROVIDERS: ADMIT Obstetrics & Gynecology; ATTEND Obstetrics & Gynecology
PROC: 0W8NXZZ Division of Female Perineum, External Approach (ICD-10-PCS; principal; 2022-10-19)
PROC: 10E0XZZ Delivery of Products of Conception, External Approach (ICD-10-PCS; 2022-10-19)
PROC: 0HQ9XZZ Repair Perineum Skin, External Approach (ICD-10-PCS; 2022-10-19)
DX: O42.02 Full-term premature rupture of membranes, onset of labor within 24 hours of rupture (principal); Z37.0 Single live birth; O99.214 Obesity complicating childbirth; E66.9 Obesity, unspecified; Z3A.40 40 weeks gestation of pregnancy
CPT/HCPCS: 36415; 59409; 80048; 83986-QW; 85025; 85610; 86780; 86850; 86900; 86901; C9803-CS; U0003; U0005

== ENCOUNTER 2022-10-22 18:03 | Emergency (ER) | payer OTHER ==
[2022-10-22 18:12] VITALS: BP 129/64; PULSE 93; RESP 18; BMI 37.3
[2022-10-22] MEDS ORDERED: SODIUM CHLORIDE 0.9% 500 ML INFUS.BAG IV ONE (18:52)
[2022-10-22] MEDS ORDERED: ACETAMINOPHEN 1000 MG/100 ML BAG IVPB ONE (18:52)
[2022-10-22] MEDS ORDERED: ACETAMINOPHEN INJECTION 100 ML IVPB ONE (19:36)
[2022-10-22 19:45] LABS: BASO % 0.6 % (0-2.0); EOS % 1.3 % (0-4.5); HEMATOCRIT 31.6 % (32.4-45.2); HEMOGLOBIN 10.3 GM/dL (10.7-15.3); LYMPH % 15.8 % (8-40); MCH 25.1 pg (25.7-33.7); MCHC 32.7 g/dl (32.0-36.0); MEAN CELL VOLUME 76.8 fl (80-96); MEAN PLT VOLUME 9.4 fl (7.5-11.1); NEUT % 75.3 % (42.8-82.8); PLATELET COUNT 231 10^3/uL (134-434); RBC 4.12 M/mm3 (3.60-5.2); RDW 16.2 % (11.6-15.6)
[2022-10-22 19:51] LABS: HCG,QUALITATIVE URINE Negative
[2022-10-22 20:04] LABS: EPI CELLS 7 /uL (0-25.1); HYALINE CASTS 1 /uL (0-3.1); URINE APPEARANCE CLEAR; URINE BACTERIA 74 /uL (0-1359); URINE BILIRUBIN NEGATIVE (NEGATIVE); URINE COLOR ORANGE; URINE GLUCOSE (UA) NEGATIVE (NEGATIVE); URINE KETONE NEGATIVE (NEGATIVE); URINE LEUK ESTERASE 2+ (NEGATIVE); URINE NITRITE NEGATIVE (NEGATIVE); URINE PROTEIN TRACE (NEGATIVE); URINE RBC 3243 /uL (0-23.9); URINE UROBILINOGEN 0.2 mg/dL (0.2-1.0); URINE WBC 616 /uL (0-25.8)
[2022-10-22 20:08] LABS: ALBUMIN 2.6 g/dl (3.4-5.0); CALCIUM 8.7 mg/dL (8.5-10.1)
[2022-10-22 20:09] LABS: BLOOD UREA NITROGEN 9.4 mg/dL (7-18)
[2022-10-22 20:11] LABS: CREATININE 0.5 mg/dL (0.55-1.3)
[2022-10-22 20:13] LABS: BILIRUBIN,TOTAL 0.2 mg/dL (0.2-1); TOT PROT 6.8 g/dl (6.4-8.2)
[2022-10-22] MEDS ORDERED: CEFTRIAXONE 1,000 MG in DEXTROSE 5%-WATER - 50 ML IVPB ONE (20:52)
[2022-10-22] MEDS ORDERED: CEFTRIAXONE 1 GM/50 ML BAG ONE (21:02)
[2022-10-22 21:14] VITALS: TEMP 97.9
== END 2022-10-22 22:09 | disposition home or self-care (01) ==
LOC: JER 18:03 → JERFT 18:03
PROC: 3E0333Z Introduction of Anti-inflammatory into Peripheral Vein, Percutaneous Approach (ICD-10-PCS; principal; 2022-10-22)
PROC: 3E03329 Introduction of Other Anti-infective into Peripheral Vein, Percutaneous Approach (ICD-10-PCS; 2022-10-22)
DX: N39.0 Urinary tract infection, site not specified (principal); R50.9 Fever, unspecified
CPT/HCPCS: 0241U-QW; 36415; 76830-TC; 80053; 81003; 84703; 85025; 86850; 86900; 86901; 87086; 87491; 87591; 99284-25

== ENCOUNTER 2023-01-24 18:24 | Emergency (ER) | payer OTHER ==
[2023-01-24 18:35] VITALS: BP 121/51; PULSE 85; RESP 20; TEMP 98.7; BMI 37.3
[2023-01-24] MEDS ORDERED: AMOX TR/POT CLAV 875MG/125MG TABLETS (FP) PO ONE (19:42)
[2023-01-24] MEDS ORDERED: ACETAMINOPHEN 500 MG TABLET (FP) PO ONE (19:42)
[2023-01-24] MEDS ORDERED: ACETAMINOPHEN 500 MG TABLET (FP) ONE (19:44)
[2023-01-24] MEDS ORDERED: AMOX TR/POT CLAV 875MG/125MG TABLETS (FP) ONE (19:44)
== END 2023-01-24 19:59 | disposition home or self-care (01) ==
LOC: JERFT 18:24
DX: S61.452A Open bite of left hand, initial encounter (principal); W54.0XXA Bitten by dog, initial encounter
CPT/HCPCS: 99283-25

== ENCOUNTER 2023-03-04 16:35 | Emergency (ER) | payer OTHER ==
[2023-03-04 16:44] VITALS: BP 111/61; PULSE 80; RESP 18; TEMP 99; BMI 38.7
== END 2023-03-04 18:24 | disposition home or self-care (01) ==
LOC: JERFT 16:35
DX: H10.9 Unspecified conjunctivitis (principal); J32.9 Chronic sinusitis, unspecified; J06.9 Acute upper respiratory infection, unspecified; R50.9 Fever, unspecified; R07.9 Chest pain, unspecified; R09.81 Nasal congestion; H92.02 Otalgia, left ear
CPT/HCPCS: 99283-25

== ENCOUNTER 2023-03-11 00:13 | Emergency (ER) | payer OTHER ==
[2023-03-11 00:27] VITALS: BP 126/79; PULSE 94; RESP 18; TEMP 98.3; BMI 38.0
[2023-03-11] MEDS ORDERED: DIPHTH,PERTUSS(ACELL),TET 0.5 ML DISP.SYRIN IM ONE ×2 (01:02→01:34)
[2023-03-11] MEDS ORDERED: AMOX TR/POT CLAV 875MG/125MG TABLETS (FP) PO ONE (01:02)
[2023-03-11] MEDS ORDERED: LIDOCAINE HCL 1%, 10 MG/ML (50 mL VIAL) SQ ONE (01:03)
[2023-03-11] MEDS ORDERED: ACETAMINOPHEN 325 MG TABLET (FP) PO ONE (01:03)
[2023-03-11] MEDS ORDERED: AMOX TR/POT CLAV 875MG/125MG TABLETS (FP) ONE (01:33)
[2023-03-11] MEDS ORDERED: ACETAMINOPHEN 325 MG TABLET (FP) ONE (01:34)
[2023-03-11] MEDS ORDERED: IBUPROFEN 600 MG TABLET (FP) PO ONE ×2 (02:00→03:03)
== END 2023-03-11 03:05 | disposition home or self-care (01) ==
LOC: JER 00:13
PROC: 0HQFXZZ Repair Right Hand Skin, External Approach (ICD-10-PCS; principal; 2023-03-11)
PROC: 3E0234Z Introduction of Serum, Toxoid and Vaccine into Muscle, Percutaneous Approach (ICD-10-PCS; 2023-03-11)
DX: S61.012A Laceration without foreign body of left thumb without damage to nail, initial encounter (principal); S61.452A Open bite of left hand, initial encounter; W54.0XXA Bitten by dog, initial encounter; Y92.9 Unspecified place or not applicable
CPT/HCPCS: 73130-TC-LT-FY; 90715; 99283-25

== ENCOUNTER 2023-03-12 13:06 | Inpatient (IN) | payer OTHER ==
[2023-03-12 13:18] VITALS: BMI 38.0
[2023-03-12] MEDS ORDERED: KETOROLAC TROMETHAMINE 30 MG/1 ML VIAL IVPUSH ONE (14:24)
[2023-03-12] MEDS ORDERED: KETOROLAC TROMETHAMINE 30 MG/1 ML VIAL ONE (14:31)
[2023-03-12 14:53] LABS: BASO % 0.6 % (0-2.0); EOS % 1.6 % (0-4.5); HEMATOCRIT 33.1 % (32.4-45.2); HEMOGLOBIN 10.3 GM/dL (10.7-15.3); MCH 22.3 pg (25.7-33.7); MEAN CELL VOLUME 71.9 fl (80-96); MEAN PLT VOLUME 9.2 fl (7.5-11.1); MONO % 4.2 % (3.8-10.2); NEUT % 74.6 % (42.8-82.8); PLATELET COUNT 287 10^3/uL (134-434); RDW 17.1 % (11.6-15.6); WHITE BLOOD COUNT 9.9 K/mm3 (4.0-10.0)
[2023-03-12] MEDS ORDERED: AMPICILLIN NA/SULBACTAM NA 3 GM in SODIUM CHLORIDE 100 ML IVPB ONE (15:12)
[2023-03-12 15:17] LABS: CHLORIDE 109 mmol/L (98-107); POTASSIUM 3.6 mmol/L (3.5-5.1); SODIUM 142 mmol/L (136-145)
[2023-03-12 15:18] LABS: CALCIUM 8.5 mg/dL (8.5-10.1)
[2023-03-12 15:19] LABS: ANION GAP 8 MMOL/L (8-16); BLOOD UREA NITROGEN 7.7 mg/dL (7-18); CO2 26 mmol/L (21-32); GLUCOSE,RANDOM 121 mg/dL (74-106)
[2023-03-12 15:23] LABS: CREATININE 0.7 mg/dL (0.55-1.3)
[2023-03-12] MEDS ORDERED: AMPICILLIN NA/SULBACTAM NA 3 GM VIAL ONE (15:38)
[2023-03-12 20:03] LABS: RETICULOCYTES 1.36 % (0.5-1.5)
[2023-03-12 20:04] LABS: IRON SERUM 15 ug/dL (50-175); TOTAL IRON BINDING CAPACITY 518 ug/dL (250-450)
[2023-03-12] MEDS ORDERED: AMPICILLIN NA/SULBACTAM NA 1.5 GM in SODIUM CHLORIDE 100 ML IVPB SCH (22:00)
[2023-03-12] MEDS: AMPICILLIN NA/SULBACTAM NA 1.5 GM in SODIUM CHLORIDE 100 ML IVPB SCH (22:34)
[2023-03-12] MEDS: ACETAMINOPHEN 1000 MG/100 ML BAG IVPB PRN (23:43)
[2023-03-13] MEDS: AMPICILLIN NA/SULBACTAM NA 1.5 GM in SODIUM CHLORIDE 100 ML IVPB SCH ×4 (02:15→23:48)
[2023-03-13] MEDS: ACETAMINOPHEN 1000 MG/100 ML BAG IVPB PRN (08:15)
[2023-03-13 09:21] LABS: BASO % 0.6 % (0-2.0); EOS % 2.5 % (0-4.5); HEMATOCRIT 32.8 % (32.4-45.2); HEMOGLOBIN 10.1 GM/dL (10.7-15.3); LYMPH % 36.7 % (8-40); MCH 22.2 pg (25.7-33.7); MCHC 30.7 g/dl (32.0-36.0); MEAN CELL VOLUME 72.3 fl (80-96); MEAN PLT VOLUME 9.7 fl (7.5-11.1); MONO % 5.6 % (3.8-10.2); NEUT % 54.6 % (42.8-82.8); PLATELET COUNT 287 10^3/uL (134-434); RBC 4.54 M/mm3 (3.60-5.2); RDW 17.2 % (11.6-15.6); WHITE BLOOD COUNT 6.9 K/mm3 (4.0-10.0)
[2023-03-13] MEDS: ENOXAPARIN NA (PORCINE) 40 MG/0.4 ML DISP.SYRIN SQ SCH (09:43)
[2023-03-13 09:54] LABS: POTASSIUM 4.1 mmol/L (3.5-5.1)
[2023-03-13 09:57] LABS: CALCIUM 8.4 mg/dL (8.5-10.1)
[2023-03-13 09:58] LABS: ALBUMIN 3.2 g/dl (3.4-5.0); BLOOD UREA NITROGEN 6.6 mg/dL (7-18)
[2023-03-13 10:01] LABS: CREATININE 0.6 mg/dL (0.55-1.3); PHOSPHOROUS 3.8 mg/dL (2.5-4.9)
[2023-03-13 10:02] LABS: BILIRUBIN,TOTAL 0.5 mg/dL (0.2-1); TOT PROT 6.6 g/dl (6.4-8.2)
[2023-03-14] MEDS ORDERED: ACETAMINOPHEN 325 MG TABLET (FP) PO PRN (00:55)
[2023-03-14] MEDS: AMPICILLIN NA/SULBACTAM NA 1.5 GM in SODIUM CHLORIDE 100 ML IVPB SCH ×2 (04:52→08:44)
[2023-03-14 08:39] VITALS: BP 115/69; PULSE 62; RESP 18; TEMP 97.5
[2023-03-14] MEDS: ENOXAPARIN NA (PORCINE) 40 MG/0.4 ML DISP.SYRIN SQ SCH (09:20)
== END 2023-03-14 13:45 | disposition home or self-care (01) | DRG 605 ==
LOC: JER 13:06 → JERFT 13:06 → JERBED 19:52 → J6S 21:03
PROVIDERS: ADMIT Internal Medicine; ATTEND Internal Medicine
DX: S61.452A Open bite of left hand, initial encounter (principal); L03.116 Cellulitis of left lower limb; W54.0XXA Bitten by dog, initial encounter; Y92.098 Other place in other non-institutional residence as the place of occurrence of the external cause; D50.9 Iron deficiency anemia, unspecified; E66.9 Obesity, unspecified; Z68.38 Body mass index [BMI] 38.0-38.9, adult
CPT/HCPCS: 36415; 73201-TC-RT; 80048; 80053; 82728; 83036; 83540; 83550; 83735; 84100; 84466; 84702; 85025; 85045; 99285-25; Q9967

== ENCOUNTER 2023-03-23 21:05 | Emergency (ER) | payer OTHER ==
[2023-03-23 21:11] VITALS: BP 122/77; PULSE 80; RESP 18; TEMP 99.1; BMI 38.7
== END 2023-03-23 23:26 | disposition home or self-care (01) ==
LOC: JERFT 21:05 → JER 21:05
DX: Z48.02 Encounter for removal of sutures (principal)
CPT/HCPCS: 99282-25